=== PATIENT | female | born 1940 | race Caucasian/White ===

== ENCOUNTER → 2016-05-02 | Outpatient (CLI) | payer OTHER ==
[~2016-05-02] MED LIST: ACETAMINOPHEN325 MG PO; AMOXICILLIN500 M1 PO; ANTI-DIARRHEAL2 M1 PO; ARICEPT PO; ASPIRIN PO; AUGMENTIN PO; BACTROBAN22 GM TP; BENADRYL PO; BUPROPION HCL150 M3 PO; CENTRUM SILVER PO; CRANBERRY400 M1 PO; DEPAKOTE PO; FLONASE 0.05% N16 GM; FLORINEF ACETA0.1 MG PO; HYDROCORTISONE28 GM TOP; KEFLEX PO; KEFLEX250 M2 PO; LAMICTAL PO; LAMICTAL100 MG PO; LAMOTRIGINE200 MG PO; LIPITOR PO; LODINE400 M1 PO; LOMOTIL TABLET1 TAB PO; MACRODANTIN PO; MULTI-VITAMIN1 EAC1 PO; MULTI-VITAMIN1 TAB PO; MUSCLE RUB CRE113 GM TP; NAVANE2 MG PO; NEURONTIN PO; NYSTOP TOP; PATANOL5 ML OP; PLAVIX PO; POSTURE600 MG PO; PREDNISONE PO; PREDNISONE1 MG PO; PRILOSEC20 M1 PO; PROTOPIC; RISPERIDONE PO; ROBITUSSIN15 MG/5 ML PO; THERA TEARS32 EA OS; ULTRAM PO; VIT D; VITAMIN B-12500 MCG PO; VITAMIN C PO; VITAMIN C500 M5 PO; VITAMIN D 4001 UDTAB PO; VITAMIN D31000 UNIT PO; WELLBUTRIN PO; WELLBUTRIN SR PO; ZANTAC PO; ZETIA PO; ZINC; ZOFRAN2 MG/M1 PO; [UNRECOGNIZED DRUG - OTHER]; [UNRECOGNIZED DRUG - OTHER]
--- NOTE | ~2016-05-02 | MY11 ---
[facility] A Service of [facility] RADIOLOGY TEXT RESULTS PATIENT: MANJULA JARVIS LOCATION: [facility] : 38 UNIT #: [id number] AGE: [address]: Shonna Trejo MD SEX: F ORDER DR: [id number] [facility] [address] [facility]. [place], [place] [address] [id number] MR#: [id number] Acc #: [id number] NAME: MANJULA JARVIS : 1940 SEX: F STUDY DATE/TIME: 05/02/2016 11:39 UNIT: [facility] ROOM: STUDY DESCRIPTION: MY Mammogram Screening Dig Neil Attending Physician: Shonna Trejo M.D. Ordering Physician: Shonna Trejo M.D. Primary Care Physician: Shonna Trejo M.D. MEDICAL IMAGING REPORT This report is preliminary unless electronic signature is present EXAM Screening mammogram 2017 INDICATION 75-year-old with no personal or family history of breast cancer. No current complaints. FINDINGS Routine digital screening views of both breasts were obtained. Study is reviewed with an FDA-approved CAD device. Comparison made with 08/18/2014, 11/03/2012, 04/02/2011. Breast parenchyma shows scattered fibroglandular densities. No new masses or suspicious microcalcifications are seen. There are a few stable benign calcifications in the left breast. IMPRESSION Benign mammogram. Routine screening in 1 year recommended. Patient's over the age of 40 are entered into a reminder system with target due date for the next mammogram. BIRADS: 2 Benign findings Dictated by... Keyon Carlisle Jr., M.D. THIS IS AN ELECTRONICALLY VERIFIED REPORT Keyon Carlisle Jr., M.D. at 05/02/2016 4:52 PM WESLEY/ruba [facility] A Service of [facility] RADIOLOGY TEXT RESULTS PATIENT: MANJULA JARVIS LOCATION: [facility] : 39 UNIT #: [id number] AGE: [address]: Shonna Trejo MD SEX: F ORDER DR: TD: 05/02/2016 15:04 JOB #: [id number] MEDICAL IMAGING REPORT COPY
== END | disposition home or self-care (01) ==
LOC: CWCC 11:14
DX: Z12.31 Encounter for screening mammogram for malignant neoplasm of breast (principal)
CPT/HCPCS: G0202

== ENCOUNTER 2016-09-05 14:22 | Emergency (ER) | payer MEDICARE ==
--- NOTE | ~2016-09-05 | CR113 ---
[facility] A Service of [facility] RADIOLOGY TEXT RESULTS PATIENT: MANJULA JARVIS LOCATION: [facility] : 38 UNIT #: [id number] AGE: [address]: Genie Hernandez SEX: F ORDER DR: [id number] [facility] [address] [facility]. [place], [place] [address] [id number] MR#: [id number] Acc #: [id number] NAME: MANJULA JARVIS : 1940 SEX: F STUDY DATE/TIME: 09/05/2016 14:42 UNIT: [facility] ROOM: STUDY DESCRIPTION: CR Finger 2 View [address] Attending Physician: Genie Hernandez P.A.-C. Ordering Physician: Genie Hernandez P.A.-C. Primary Care Physician: Shonna Trejo M.D. MEDICAL IMAGING REPORT This report is preliminary unless electronic signature is present EXAM Right fourth digit 09/05 INDICATIONS Finger pain and bruising after catching finger in a rat trap today. FINDINGS Three views of the right fourth digit were obtained. There is osteoarthritis, predominately in the proximal interphalangeal joint. No acute fracture or malalignment is seen. 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 No acute fracture. Dictated by... Keyon Carlisle Jr., M.D. THIS IS AN ELECTRONICALLY VERIFIED REPORT Keyon Carlisle Jr., M.D. at 09/05/2016 7:00 PM WESLEY/rpabhu TD: 09/05/2016 17:04 JOB #: [id number] MEDICAL IMAGING REPORT Page 1 of 1 COPY
== END 2016-09-05 15:50 | disposition home or self-care (01) ==
LOC: CED 14:22 → CFTX 14:22
DX: S61.214A Laceration without foreign body of right ring finger without damage to nail, initial encounter (principal); Z23 Encounter for immunization; F41.9 Anxiety disorder, unspecified; F03.90 Unspecified dementia, unspecified severity, without behavioral disturbance, psychotic disturbance, mood disturbance, and anxiety; Z88.0 Allergy status to penicillin; Z88.6 Allergy status to analgesic agent; Z88.8 Allergy status to other drugs, medicaments and biological substances; W22.8XXA Striking against or struck by other objects, initial encounter; Y92.009 Unspecified place in unspecified non-institutional (private) residence as the place of occurrence of the external cause
CPT/HCPCS: 12001; 73140; 90471; 90715; 99283